=== PATIENT | male | born 1990 | race Caucasian/White ===

== ENCOUNTER 2022-11-26 13:24 | Emergency (ER) | payer OTHER | END 2022-11-26 14:50 | disposition home or self-care (01) | LOC: LL.ED 13:24 | DX: S99.922A Unspecified injury of left foot, initial encounter (principal); F17.290 Nicotine dependence, other tobacco product, uncomplicated; W20.8XXA Other cause of strike by thrown, projected or falling object, initial encounter | CPT/HCPCS: 73660-LT; 99283 ==